=== PATIENT | male | born 1950 | race Caucasian/White ===

== ENCOUNTER → 2016-06-16 | Outpatient (CLI) | payer OTHER ==
[~2016-06-16] MED LIST: ALBUAER2 INH; ASPI81TA28 PO; DFL100 PO; FLNIN NAE; MULT-506 PO; OLOPATADINE 0.6%; PRLSR20 PO; SALI0.6517; SNG10 PO
[2016-06-16 12:45] LABS: ALT/SGPT 42 U/L (12-78); BLOOD UREA NITROGEN 26 mg/dl (7-18); BUN/CREATININE RATIO 27.4 (10-20); CALCIUM 8.8 mg/dl (8.5-10.1); CARBON DIOXIDE 26 mmol/L (21-32); CHLORIDE 107 mmol/L (98-107); CHOLESTEROL 224 mg/dl (0-200); CREATININE 0.95 mg/dl (0.60-1.40); GLUCOSE 92 mg/dl (70-99); SODIUM 142 mmol/L (136-145)
[2016-06-16 12:48] LABS: ALB/GLOB RATIO 1.2 (0.9-2); ALKALINE PHOSPHATASE 89 U/L (45-117); AST/SGOT 20 U/L (15-37); CHOLESTEROL/HDL RATIO 3.9; HDL CHOLESTEROL 57 mg/dl; LDL CHOLESTEROL CALCULATED 143 mg/dl; TRIGLYCERIDES 119 mg/dl (0-150); VERY LOW DENSITY LIPOPROT CALC 24 mg/dl
== END | disposition home or self-care (01) ==
LOC: C.LABPVFM 08:06
PROVIDERS: ATTEND Family Medicine
DX: Z13.220 Encounter for screening for lipoid disorders (principal); Z13.1 Encounter for screening for diabetes mellitus; M85.80 Other specified disorders of bone density and structure, unspecified site; Z11.59 Encounter for screening for other viral diseases

== ENCOUNTER 2016-07-02 14:06 | Emergency (ER) | payer OTHER ==
[~2016-07-02] VITALS: Ht 180.3 cm; Wt 91.0 kg
[~2016-07-02 14:06] MED LIST changes: -ASPI81TA28 PO; -MULT-506 PO
[2016-07-02 14:08] VITALS: Ht 180.3 cm; Wt 91.0 kg
--- NOTE | 2016-07-02 14:59 | DIAGNOSTIC IMAGING REPORT ---
LEFT ANKLE MIN 3 VIEWS ROUTINE CLINICAL HISTORY: Left ankle and foot pain. COMPARISON: None FINDINGS: There is a tiny avulsion fracture of the fibular tip which is likely acute. No additional acute fractures of the left ankle are identified. There is mild lateral ankle soft tissue swelling. Talar dome is intact. There is extensive vascular calcification. IMPRESSION: Tiny avulsion fracture of the fibular tip which is likely acute. No additional acute fractures identified. Electronically signed by: Heri Leyva M.D. 07/02/2016 2:57 PM Dictated Date/Time: 07/02/2016 2:56 PM
--- NOTE | 2016-07-02 15:02 | DIAGNOSTIC IMAGING REPORT ---
LEFT FOOT MIN 3 VIEWS ROUTINE CLINICAL HISTORY: Left ankle and foot pain. COMPARISON: None FINDINGS: The tarsometatarsal joints are intact. There is subtle cortical irregularity of the plantar base of the distal phalanx of the left first toe. This finding is age-indeterminate. IMPRESSION: Subtle cortical irregularity of the plantar base of the distal phalanx of the left first toe. This is probably chronic although a nondisplaced fracture could have this appearance. Electronically signed by: Heri Leyva M.D. 07/02/2016 3:01 PM Dictated Date/Time: 07/02/2016 2:58 PM
[2016-07-02] MEDS ORDERED: ASPI81TA28 PO (15:17)
[2016-07-02] MEDS ORDERED: MULT-506 PO (15:17)
[2016-07-02 15:40] VITALS: BP 132/77; PULSE 90; TEMP 37.3; O2SAT 97
--- NOTE | 2016-07-02 16:59 | EMERGENCY ROOM VISIT NOTE ---
ED Visit Note First contact with patient: 14:19 Chief complaint: Left ankle pain and head pain. HPI: This 66-year-old white male presents to the emergency room for evaluation of his left ankle and his head. The patient injured the ankle earlier today. He was helping a friend remove concrete kristel from a building. A slab was being lifted with a forklift. The patient was using a jackhammer to break up the edge of the concrete. The slab was under stress and lifted abruptly, falling on top of his lower leg. Patient was thrown backward and believes he struck his head on the remaining concrete floor. He states he may have lost consciousness for a second or 2. He did have work boots on. He states he is able to get up and continue working with the jackhammer for approximately 2 hours. At that point his ankle became more painful. He states there is never been any headache, nausea, vomiting, or change in vision, speech, or hearing. Since that time, they have had persistent pain over the lateral portion of the ankle. They deny any numbness or tingling. Pain is worse with weight-bearing. They have been walking with a limp. no knee or hip pain. No pop or snap with injury. Treatment has consisted of ice provided in the ER. No prior history of significant ankle injury. Pain is 5/10. His accompanies him today. He states his head does not hurt when he would like it evaluated any way. REVIEW OF SYSTEM: HEENT: No dizziness, visual problems, hearing loss, tinnitus. There is no difficulty swallowing and no oral lesions are present. PULMONARY: No cough, shortness of breath, sputum production or hemoptysis. CARDIOVASCULAR: No chest pain, palpitations, shortness of breath or peripheral edema. GASTROINTESTINAL: No diarrhea, constipation, nausea, vomiting, or abdominal pain. GENITOURINARY: No dysuria, frequency, urgency or nocturia. NEUROLOGIC: No weakness, muscle tenderness, epilepsy or history of neurological problems. No history of chronic headaches. MUSCULOSKELETAL: No history of joint tenderness/swelling. No history of arthritis or arthralgias. SKIN: No rashes or lesions. PSYCHIATRIC: No history of depression or mental illness. ENDOCRINE: No history of diabetes, thyroid disorders, abnormal hair growth. PAST MEDICAL HISTORY: Supplemental sheet was reviewed. Previous surgeries: None Medical history: Benign Current medications: Baby aspirin Allergies: NKDA Family history: Noncontributory. Social history: Lives at home with his family. No tobacco use, no EtOH use. PHYSICAL EXAM: Vitals: Afebrile. Reviewed and filed in patient's chart General: Well-developed, well-nourished, elderly white male, in obvious discomfort. No acute distress. He is sitting in a wheelchair. Alert and oriented. Skin:Warm and dry with good turgor. No rashes or lesions. No erythema. The patient is not diaphoretic. Minor abrasions on his vela. He also has some crusted abrasions present in his posterior scalp. No laceration. There is nothing to close. Edema is present over the dorsum of the foot and the lateral ankle. HEENT: Normocephalic. Eyes PERRLA, EOMI. No conjunctiva or scleral injection. Nares patent bilaterally without turbinate enlargement. No significant drainage. No epistaxis. Oropharynx without erythema or exudate. Uvula midline , oral mucosa moist. No lesions present. Musculoskeletal: Left leg and ankle evaluation reveals no pain with palpation across the knee or proximal tibia or fibula. There is pain with palpation over the lateral malleolus and the lateral ligaments. No pain over the medial malleolus or deltoid ligament. Achilles' tendon is palpated to its entirety and found to be intact and without defect. Normal Reyes test. No pain with palpation of the calcaneus. There is pain with palpation over the Fifth metatarsal base, midfoot, and forefoot. No pain with palpation over the toes. Motor function to the toes is intact and unremarkable. Motor function to the ankle is intact but range of motion is limited by pain. Strength is 5/5 for resisted motion. Drawer and tilt testing were not attempted. Neurologic: Gross sensation is intact across all aspects of the foot and ankle via soft touch. Cranial nerves II through XII are intact. Peripheral pulses are 2+. Data: Radiographic images of the ankle were obtained today and were reviewed by me as well as radiology. They are remarkable for a lateral malleolus avulsion fracture. IMPRESSION: Left ankle lateral malleolus avulsion fracture. Scalp abrasion PLAN: The patient was educated regarding today's findings. Conservative care measures were discussed. Scalp wounds do not require closure. This should heal intracranial injury was discussed. He exhibits no symptoms at this time. Obviously return to the ED or see his PCP if symptoms should become worse. Option of CT scanning the head was discussed. We will defer for now given his lack of symptoms. Patient was given an Roberto wrap for ankle edema control and will use this for the next 5 days. Ankle gel splint was also applied and will be used for support for the next 3 weeks. It may be removed for bathing and sleep. It should be used for a few additional weeks for sporting events only. Crutches were offered and the patient declined. Weight-bear as tolerable. Gentle motion daily. Ice and elevate intermittently over the next 3 days, after which they may switch to moist heat. Lower leg should be elevated at night during sleep. Tylenol and ibuprofen every 6 hours as needed for discomfort. Sprain handout was provided. Return to the ER for any acute changes. Follow-up with his PCP or orthopedist if not improving in 5 to 7 days. He was reassured that I do not suspect additional fracture, tendon rupture, or significant ligament injury at this point. Current/Historical Medications Scheduled Aspirin (Aspirin Ec), 81 MG PO QPM Multivitamin (Multivitamin), 1 TAB PO DAILY Allergies Coded Allergies: No Known Allergies (Unverified , 07/02/16) Vital Signs Date Time Temp Pulse Resp B/P Pulse Ox O2 Delivery O2 Flow Rate FiO2 07/02/16 15:40 37.3 90 16 132/77 97 07/02/16 15:39 90 16 132/77 97 Room Air 07/02/16 14:08 37.3 94 16 141/77 95 Room Air Departure Information Impression Primary Impression: Head contusion Additional Impression: Fracture of distal end of left fibula Dispostion Home / Self-Care Condition GOOD Forms HOME CARE DOCUMENTATION FORM, MOTRIN USE, TYLENOL USE, IMPORTANT VISIT INFORMATION Patient Instructions My Eons Additional Instructions weight-bear as tolerable Ice and elevate intermittently x3 days, and then use moist heat Tylenol and ibuprofen every 6 hours as needed for pain Gentle motion daily See your PCP or orthopedist if not improving over 5-7 days Use gel splint at all times other than bathing and sleep for 3 weeks, and then use it for an additional 2 weeks for any sporting activity Return to the ED for any nausea, vomiting, dizziness, or worsening headache. Problem Qualifiers
== END 2016-07-02 15:40 | disposition home or self-care (01) ==
LOC: C.EDB 14:07 → C.EDD 15:40
DX: S00.93XA Contusion of unspecified part of head, initial encounter (principal); S82.62XA Displaced fracture of lateral malleolus of left fibula, initial encounter for closed fracture; W18.09XA Striking against other object with subsequent fall, initial encounter; S80.819A Abrasion, unspecified lower leg, initial encounter; S00.01XA Abrasion of scalp, initial encounter; Z79.82 Long term (current) use of aspirin

== ENCOUNTER → 2016-07-06 | Outpatient (CLI) | payer OTHER ==
[~2016-07-06] MED LIST changes: -ALBUAER2 INH; +ASPI81TA28 PO; -DFL100 PO; -FLNIN NAE; +MULT-506 PO; -OLOPATADINE 0.6%; -PRLSR20 PO; -SALI0.6517; -SNG10 PO
[2016-07-06 19:55] LABS: FREE PSA 0.59 ng/ml; PROSTATE SPECIFIC ANTIGEN 3.08 ng/ml (0.000-4.000)
== END | disposition home or self-care (01) ==
LOC: C.LABPVFM 15:58
PROVIDERS: ATTEND Family Medicine
DX: N40.1 Benign prostatic hyperplasia with lower urinary tract symptoms (principal)

== ENCOUNTER → 2017-05-01 | Outpatient (CLI) | payer OTHER | END | disposition home or self-care (01) | LOC: C.MAMM 09:50 | PROVIDERS: ATTEND Family Medicine | DX: M85.88 Other specified disorders of bone density and structure, other site (principal) ==